=== PATIENT | female | born 1935 ===

== ENCOUNTER 2017-04-02 17:00 | Emergency (ER) | payer MEDICARE, OTHER ==
[2017-04-02] MEDS ORDERED: DiphenhydrAMINE 50 mg/ml Inj ONE (17:20)
--- NOTE | 2017-04-02 22:12 | CT ---
PROCEDURE: CT HEAD WITHOUT CONTRAST. HISTORY: Dizziness, nausea COMPARISON: None available. TECHNIQUE: Axial computed tomography images were obtained through the head/brain without intravenous contrast. Radiation dose: Total exam DLP = 898.33 mGy-cm. This CT exam was performed using one or more of the following dose reduction techniques: Automated exposure control, adjustment of the mA and/or kV according to patient size, and/or use of iterative reconstruction technique. FINDINGS: HEMORRHAGE: No intracranial hemorrhage. BRAIN: Diffuse atrophy with prominence of the ventricles and sulci noted. No mass effect or edema. Scattered periventricular and subcortical white matter hypodensities, which are nonspecific, but often seen with chronic microvascular ischemic disease. Please note that MRI with diffusion imaging is more sensitive in the detection of acute ischemic event. VENTRICLES: No hydrocephalus. CALVARIUM: Unremarkable. PARANASAL SINUSES: Unremarkable as visualized. No significant inflammatory changes. MASTOID AIR CELLS: Unremarkable as visualized. No inflammatory changes. OTHER FINDINGS: None. IMPRESSION: Generalized atrophy. Nonspecific white matter changes.
[2017-04-02 23:52] LABS: BASO % 0.4 % (0.0-2.0); HEMATOCRIT 39.9 % (34.0-47.0); LYMPH % 28.3 % (20.0-40.0); MEAN CELL VOLUME 96.3 fL (81.0-99.0); MEAN CORPUSCULAR HEMOGLOBIN 33.2 pg (27.0-31.0); MEAN CORPUSCULAR HGB CONC 34.4 g/dL (33.0-37.0); MEAN PLATELET VOLUME 10.3 fL (7.2-11.7); MONO # 0.7 K/uL (0.0-0.8); NRBC % 0.1 % (0.0-2.0); RED CELL DISTRIBUTION WIDTH 13.9 % (11.5-14.5); WHITE BLOOD COUNT 7.2 K/uL (4.8-10.8)
[2017-04-03 06:33] LABS: RBC URINE 1 /hpf (0-3); URINE BILIRUBIN NEGATIVE (NEGATIVE); URINE BLOOD NEGATIVE (NEGATIVE); URINE COLOR YELLOW (YELLOW); URINE GLUCOSE (UA) Normal (Normal); URINE KETONE 1+ mg/dL (NEGATIVE); URINE LEUKOCYTE ESTERASE 3+ Leu/uL (Negative); URINE PROTEIN NEGATIVE (NEGATIVE); URINE UROBILINOGEN Normal mg/dL (0.2-1.0)
[2017-04-03 06:34] LABS: TRANSITIONAL EPITHIAL 2 /hpf (0-3); URINE BACTERIA OCC (<OCC); WBC URINE 15 /hpf (0-5)
[2017-04-03 07:17] LABS: BLOOD UREA NITROGEN 16 mg/dL (7-17); GFR AFRICAN-AMERICAN > 60; GLUCOSE,RANDOM 112 mg/dL (65-105); POTASSIUM 3.8 mmol/L (3.6-5.2); SODIUM 137 mmol/L (132-148)
[2017-04-03 07:18] LABS: ALB/GLOB RATIO 1.4 (1.0-2.1); AST/SGOT 32 U/L (14-36); BILIRUBIN,TOTAL 0.9 mg/dL (0.2-1.3); CALCIUM 8.8 mg/dl (8.6-10.4); CARBON DIOXIDE 24 mmol/L (22-30); CHLORIDE 102 mmol/L (98-107); TOTAL PROTEIN 7.3 g/dL (6.3-8.3)
[2017-04-03 07:19] LABS: ALKALINE PHOSPHATASE 52 U/L (38-126); ALT/SGPT 30 U/L (9-52)
== END 2017-04-02 20:10 | disposition home or self-care (01) ==
LOC: C.ER 17:00
DX: R51 Headache (principal); N39.0 Urinary tract infection, site not specified; R42 Dizziness and giddiness
CPT/HCPCS: 70450; 80053; 81001; 84484; 85025; 85610; 85730; 96374; 96375; 99281; J1200; J1885; J2765

== ENCOUNTER 2018-06-07 17:02 | Emergency (ER) | payer MEDICARE, OTHER ==
[2018-06-07 17:18] VITALS: BMI 25.7
[2018-06-07 17:20] VITALS: BP 119/75; PULSE 89; RESP 18; TEMP 98.3; O2SAT 96
--- NOTE | 2018-06-07 17:39 | C.PDOC ---
History Of Present Illness 82 y/o female presents to ED with c/o rash to torso, back and upper legs for 3 days. Patient states rash is non pruritic and denies new detergents, known allergens, fever, chills, sob, wheezing or any other complaints at this time. Time Seen by Provider: 06/07/18 17:28 Chief Complaint (Nursing): Abnormal Skin Integrity History Per: Patient History/Exam Limitations: no limitations Onset/Duration Of Symptoms: Days Current Symptoms Are (Timing): Still Present Past Medical History Reviewed: Historical Data, Nursing Documentation, Vital Signs Vital Signs: Last Vital Signs Temp 98.3 F 06/07/18 17:18 Pulse 89 06/07/18 17:18 Resp 18 06/07/18 17:18 BP 119/75 06/07/18 17:18 Pulse Ox 96 06/07/18 17:52 - Medical History PMH: HTN, Hypercholesterolemia, Osteoporosis Surgical History: No Surg Hx Family History: States: No Known Family Hx - Social History Hx Alcohol Use: No Hx Substance Use: No - Immunization History Hx Tetanus Toxoid Vaccination: No Hx Influenza Vaccination: No Hx Pneumococcal Vaccination: No Review Of Systems Constitutional: Negative for: Fever, Chills Cardiovascular: Negative for: Chest Pain Respiratory: Negative for: Cough, Shortness of Breath Gastrointestinal: Negative for: Nausea, Vomiting Skin: Positive for: Rash Physical Exam - Physical Exam Appears: Non-toxic, No Acute Distress Skin: Warm, Dry, Rash (maculopapular rash with blanching to upper back, chest and upper legs) Head: Atraumatic, Normacephalic Eye(s): bilateral: Normal Inspection Oral Mucosa: Moist Throat: Normal, No Erythema, No Exudate Neck: Normal ROM, Supple Cardiovascular: Rhythm Regular Respiratory: Normal Breath Sounds, No Rales, No Rhonchi, No Wheezing Neurological/Psych: Oriented x3, Normal Speech, Normal Cognition ED Course And Treatment O2 Sat by Pulse Oximetry: 96 (RA) Pulse Ox Interpretation: Normal Medical Decision Making Medical Decision Making: suspect pitaryasis vs other maculopapular rash. pt well appearing advisesupportive treatment until outpt fu. Disposition - Disposition Referrals: [facility] [Outside] [facility] [Outside] Disposition: HOME/ ROUTINE Disposition Time: 17:37 Condition: STABLE Additional Instructions: please follow up with your doctor. return to er with any worsening symptoms or concerns. Prescriptions: Triamcinolone 0.25% [Triamcinolone 0.25% Oint] 1 appl TP TID #1 oin Instructions: Pityriasis Rosea, Skin Rash Forms: [employer] (B[place]ian) - Clinical Impression Clinical Impression: Rash - Scribe Statement The provider has reviewed the documentation as recorded by the Alec Kiran All medical record entries made by the Alec were at my direction and personally dictated by me. I have reviewed the chart and agree that the record accurately reflects my personal performance of the history, physical exam, medical decision making, and the department course for this patient. I have also personally directed, reviewed, and agree with the discharge instructions and disposition.
== END 2018-06-07 17:55 | disposition home or self-care (01) ==
LOC: C.ER 17:02
DX: R21 Rash and other nonspecific skin eruption (principal)